=== PATIENT | female | born 1985 | race Caucasian/White ===

== ENCOUNTER 2017-11-21 15:30 | Emergency (ER) | payer MEDICAID, OTHER ==
--- NOTE | 2017-11-21 15:51 | EDPHY ---
H & P Stated Complaint: SOB Time Seen by Provider: 11/21/17 15:50 HPI/ROS: CHIEF COMPLAINT: Shortness of breath for months HISTORY OF PRESENT ILLNESS: The patient is a 32 y/o female arriving at the referral of her PCP for several months of shortness of breath. She's had occasional 1-minute episodes of heart palpitations since the of her son 1.5 year ago that she has not been evaluated for. These can happen several times per day or episodes can be by several weeks. She has also felt lightheaded and dizzy upon standing and occasionally near-syncopal. Those symptoms resolve upon standing still or sitting down. She's had shortness of breath intermittently possibly since the of her son that does not seem correlated with the above symptoms. For the last 4-5 weeks she began to feel short of breath almost every day. She describes this feeling like a "tightening in my throat" and inability to take a full breath that is noisy and "sounds asthmatic." She finds herself yawning in response. These episodes can last as long as a few hours, but she denies feeling any of these symptoms currently. She denies fever, cough, chest pain, leg swelling, calf pain. No obvious risk factors for blood clots. No family history of cardiac or respiratory disease in first degree relative. REVIEW OF SYSTEMS: A ten point review of systems was performed and is negative with the exception of the items mentioned in the HPI. Past medical history: celiac disease, hx of chlamydia, HPV, genital herpes. No prescription drugs or hormonal control. Past surgical history: Appendectomy Family history: Brother had asthma. Palpitations in brother and mother. Thyroid issues in women. No at an early age. No blood clots. Social history: Father and brother at bedside. One cup of coffee daily. No illicit drug use. Nonsmoker, smokes e-cigarette in the house, and brother at bedside is a smoker. PCP: Colt Ricardo General Appearance: Alert. Vital signs reviewed. Eyes: Pupils equal and round, no conjunctival injection, no discharge. Anicteric. ENT, Mouth: Mucous membranes are moist, no oropharyngeal erythema or edema. Neck: No lymphadenopathy, supple. No thyromegaly. Respiratory: Lungs are clear to auscultation; no wheezes, rales, or rhonchi. Cardiovascular: Regular rate and rhythm; no murmur, rub, or gallop. Gastrointestinal: Abdomen is soft and nontender, no masses or organomegaly Skin: Warm and dry, no rashes on exposed skin, normal color. Back: Nontender to palpation over the thoracolumbar spine. No CVAT. Extremities: No lower extremity edema, no calf tenderness or swelling. Psychiatric: Normal affect. - Personal History LMP (Females 10-55): 1-7 Days Ago Current Tetanus/Diphtheria Vaccine: Yes Current Tetanus Diphtheria and Acellular Pertussis (TDAP): Yes - Medical/Surgical History Hx Asthma: No Hx Chronic Respiratory Disease: No Hx Diabetes: No Hx Cardiac Disease: No Hx Renal Disease: No Hx Cirrhosis: No Hx Alcoholism: No Hx HIV/AIDS: No Hx Splenectomy or Spleen Trauma: No Other PMH: hx of chlamydia, hx of HPV, hx of genital herpes. Has celiac disease. hx Appendicitis/appendectomy. h/o LEEP and cryo. - Social History Smoking Status: Never smoked Constitutional: Initial Vital Signs Temperature (C) 36.6 C 11/21/17 15:36 Heart Rate 65 11/21/17 15:36 Respiratory Rate 16 11/21/17 15:36 Blood Pressure 132/80 H 11/21/17 15:36 O2 Sat (%) 98 11/21/17 15:36 O2 Delivery Mode Room Air Allergies/Adverse Reactions: hydrocortisone [Hydrocortisone] Allergy (Mild, Verified 11/01/12 19:29) ECZEMA W/ TOPICAL STEROIDS formaldehyde Allergy (Verified 06/30/16 00:52) gluten Allergy (Verified 06/30/16 00:53) latex Allergy (Verified 06/30/16 00:53) Home Medications: Medication Instructions Recorded Multivitamins W-Minerals/Lut 1 each PO DAILY 01/20/11 [Centrum Silver Tablet] BIOTIN 06/30/16 Ibuprofen [Motrin (*)] 600 mg PO Q6HRS PRN #30 tab 07/03/16 Medical Decision Making - Diagnostics EKG Interpretation: 12 lead EKG is interpreted in Trace master View by emergency department physician. No acute ischemic changes. No ectopy. Normal intervals and axis. Imaging Results: Imaging Impressions Chest X-Ray 11/21/17 16:05 Impression: There is no acute or subacute abnormality. Imaging: I viewed and interpreted images myself ED Course/Re-evaluation: This is a healthy 32 y/o female who presents for evaluation of several months of intermittent shortness of breath and brief episodes of palpitations that do not seem correlated with each other. She has a completely normal exam and is currently asymptomatic. She has minimal risk factors for blood clots and is negative by the PERC rule set. I do not suspect acute cardiopulmonary cause for her symptoms. Plan for IV, basic labs and TSH, EKG, and chest x-ray. Chest x-ray: negative The 12 lead EKG was interpreted by myself. Sinus mechanism rate 68. See hard copy and/or "tracemaster" electronic copy for interpretation. No ectopy or arrhythmia. Emergency department evaluation is negative/normal. TSH is pending. I feel that it is safe for her to return home and follow up on an outpatient basis. I do not suspect an acute coronary syndrome given this symptom constellation. She is negative by perc and no further evaluation for PE is recommended. No pneumonia or pneumothorax on chest x-ray. She is not wheezing or hypoxic at the time of my evaluation and I do not recommend treatment for reactive airways. Differential Diagnosis: Shortness of breath including but not limited to pulmonary infectious process, COPD, asthma, pulmonary embolus and congestive heart failure. - Data Points Laboratory Results: Laboratory Results 11/21/17 16:30 11/21/17 16:30 11/21/17 11/21/17 11/21/17 16:30 16:30 16:30 WBC 7.46 10^3/uL 10^3/uL (3.80-9.50) RBC 4.59 10^6/uL 10^6/uL (4.18-5.33) Hgb 14.2 g/dL g/dL (12.6-16.3) Hct 42.2 % % (38.0-47.0) MCV 91.9 fL fL (81.5-99.8) MCH 30.9 pg pg (27.9-34.1) MCHC 33.6 g/dL g/dL (32.4-36.7) RDW 12.8 % % (11.5-15.2) Plt Count 332 10^3/uL 10^3/uL (150-400) MPV 10.0 fL fL (8.7-11.7) Neut % (Auto) 42.4 % % (39.3-74.2) Lymph % (Auto) 41.8 % % (15.0-45.0) Daggett % (Auto) 5.5 % % (4.5-13.0) Eos % (Auto) 9.7 % H % (0.6-7.6) Baso % (Auto) 0.5 % % (0.3-1.7) Nucleat RBC Rel Count 0.0 % % (0.0-0.2) Absolute Neuts (auto) 3.16 10^3/uL 10^3/uL (1.70-6.50) Absolute Lymphs (auto) 3.12 10^3/uL H 10^3/uL (1.00-3.00) Absolute Monos (auto) 0.41 10^3/uL 10^3/uL (0.30-0.80) Absolute Eos (auto) 0.72 10^3/uL H 10^3/uL (0.03-0.40) Absolute Basos (auto) 0.04 10^3/uL 10^3/uL (0.02-0.10) Absolute Nucleated RBC 0.00 10^3/uL 10^3/uL (0-0.01) Immature Gran % 0.1 % % (0.0-1.1) Immature Gran # 0.01 10^3/uL 10^3/uL (0.00-0.10) Sodium 141 mEq/L mEq/L (135-145) Potassium 4.0 mEq/L mEq/L (3.5-5.2) Chloride 107 mEq/L mEq/L (97-110) Carbon Dioxide 25 mEq/l mEq/l (22-31) Anion Gap 9 mEq/L mEq/L (8-16) BUN 10 mg/dL mg/dL (7-23) Creatinine 0.6 mg/dL mg/dL (0.6-1.0) Estimated GFR > 60 Glucose 124 mg/dL H mg/dL (70-100) Calcium 9.6 mg/dL mg/dL (8.5-10.4) TSH Pending Departure - Departure Disposition: Home, Routine, Self-Care Clinical Impression: Palpitations Dyspnea Qualifiers: Dyspnea type: shortness of breath Qualified Code(s): R06.02 - Shortness of breath Condition: Good Instructions: Dyspnea (ED), Shortness of Breath (ED) Additional Instructions: Follow up with your primary care provider this week. Return to the ED for worsening of condition. Referrals: [facility] [Outside] - As per Instructions Report Scribed for: April Salguero Report Scribed by: Macey Mcfadden Date of Report: 11/21/17 Time of Report: 16:20 Physician Review and Approval Statement: 11/21/17 17:37 Portions of this note were transcribed by the medical practice assistant. I, Dr. April Salguero, personally performed the history, physical exam, and medical decision- making; and confirmed the accuracy of the information in the transcribed note.
[2017-11-21 17:12] LABS: PLATELET COUNT 332 10^3/uL (150-400)
--- NOTE | 2017-11-21 17:23 | CPEKG ---
Heart Rate: 68 RR Interval: 882 P-R Interval: 160 QRSD Interval: 84 QT Interval: 412 QTC Interval: 439 P Nixon: 79 QRS Nixon: 72 T Wave Nixon: 34 EKG Severity - NORMAL ECG - EKG Impression: SINUS RHYTHM Electronically Signed By: April Salguero 21-Nov-2017 17:34:21
[2017-11-21 17:54] VITALS: BP 115/67
== END 2017-11-21 17:52 | disposition home or self-care (01) ==
DX: R06.02 Shortness of breath (principal); R00.2 Palpitations; Z91.040 Latex allergy status